=== PATIENT | female | born 1965 | race African-American/Black ===

== ENCOUNTER 2021-12-28 16:24 | Emergency (ER) | payer OTHER, SELFPAY ==
[2021-12-28 17:23] VITALS: BP 119/86; PULSE 87; RESP 14; TEMP 36.3; O2SAT 100; BMI 31.6
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
== END 2021-12-28 21:55 | disposition home or self-care (01) ==
PROVIDERS: Emergency Provider Emergency Medicine
DX: S13.4XXA Sprain of ligaments of cervical spine, initial encounter (principal); M54.50 Low back pain, unspecified; V43.62XA Car passenger injured in collision with other type car in traffic accident, initial encounter; Y93.9 Activity, unspecified; Y92.410 Unspecified street and highway as the place of occurrence of the external cause; Y99.9 Unspecified external cause status; Z79.899 Other long term (current) drug therapy
CPT/HCPCS: 99283